=== PATIENT | female | born 1960 ===

== ENCOUNTER 2024-10-23 05:25 | Day surgery (SDC) | payer OTHER ==
[2024-10-15 12:30] VITALS: BP 153/88
[~2024-10-23] VITALS: Ht 167.6 cm; Wt 64.4 kg
[~2024-10-23 05:25] MED LIST: ATORVASTATIN CA10 MG PO; NORVASC2.5 M1 PO; OMEGA-31000 MG PO; PROBIOTIC250 MG PO
[2024-10-23] MEDS ORDERED: METRONIDAZOLE/SODIUM CHLORIDE 500 MG/100 ML PIGGYBACK IV ONE (08:00)
[2024-10-23] MEDS ORDERED: DIBUCAINE 15 GM OINT..GM. TUBE RECTAL ONE (08:00)
[2024-10-23] MEDS ORDERED: LIDOCAINE HCL 1%/EPINEPHRINE 20ML VIAL IJ ONE (08:00)
[2024-10-23] MEDS ORDERED: CEFTRIAXONE SODIUM 2,000 MG VIAL IV ONE (08:00)
[2024-10-23] MEDS ORDERED: HEMOSTATIC MATRIX 1 KIT KIT TOP ONE (08:00)
[2024-10-23] MEDS ORDERED: BUPIVACAINE HCL/PF 0.25% 30ML VIAL InF ONE (08:00)
[2024-10-23] MEDS ORDERED: TRAM1TAB98 PO (08:41)
[2024-10-23] MEDS ORDERED: COLACE100 MG PO (08:41)
== END 2024-10-23 13:25 | disposition home or self-care (01) ==
LOC: CIR.AMB 05:25
PROVIDERS: ATTEND Surgery
DX: K64.3 Fourth degree hemorrhoids (principal); K64.4 Residual hemorrhoidal skin tags; K62.89 Other specified diseases of anus and rectum; K62.5 Hemorrhage of anus and rectum